=== PATIENT | female | born 1950 | race Caucasian/White ===

== ENCOUNTER → 2017-06-11 | Outpatient (CLI) | payer OTHER ==
[2016-02-17 18:28] VITALS: BP 121/78
[~2017-06-11] MED LIST: LEXISCAN IV ONE
== END ==
LOC: RAD 08:04
PROVIDERS: ATTEND Physician Assistant
DX: I25.10 Atherosclerotic heart disease of native coronary artery without angina pectoris (principal); R11.0 Nausea; R23.2 Flushing; R42 Dizziness and giddiness; R06.02 Shortness of breath
CPT/HCPCS: 78452; 93017; A4222; A9502; J2785